=== PATIENT | male | born 1950 | race Caucasian/White ===

== ENCOUNTER 2022-02-10 23:32 | Emergency (ER) | payer MEDICARE, OTHER ==
[~2022-02-10] VITALS: Ht 167.6 cm; Wt 75.0 kg
[2022-02-10 23:56] VITALS: BP 148/87
[2022-02-11] MEDS ORDERED: AMOX-580 PO (00:23)
[2022-02-11] MEDS ORDERED: amox tr/potassium clavulanate 875/125mg TAB PO ONE (00:25)
[2022-02-11] MEDS ORDERED: ibuprofen tablet 400 MG TABLET PO ONE (00:25)
== END 2022-02-11 00:43 | disposition home or self-care (01) ==
LOC: ER 23:33
DX: K04.7 Periapical abscess without sinus (principal); I48.91 Unspecified atrial fibrillation; I25.10 Atherosclerotic heart disease of native coronary artery without angina pectoris; I25.2 Old myocardial infarction; E11.9 Type 2 diabetes mellitus without complications; Z79.2 Long term (current) use of antibiotics
CPT/HCPCS: 99283